=== PATIENT | male | born 1960 | race African-American/Black ===

== ENCOUNTER 2018-04-22 21:54 | Inpatient (IN) | payer OTHER ==
[~2018-04-22] VITALS: Ht 190.5 cm; Wt 109.8 kg
--- NOTE | ~2018-04-22 | 2DMMODE ---
[facility] [address] [place] [address] 2 D/M-MODE ECHOCARDIOGRAM Name: BRODERICK NERI Room #: 355-P ADM IN .R.#: [id number] Admission: 04/23/18 Attend Phys: Toby Viera, Discharge: Date of : 58 Date of Service: 04/25/18 0944 Report #: [id number] THIS REPORT FOR: //name// APPROVED REPORT Study performed: 04/24/2018 14:10:23 EXAM: Comprehensive 2D, Doppler, and color-flow Echocardiogram Patient Location: In-Patient Room #: 355 Status: routine BSA: 2.38 BP: 103/74 mmHg Other Information Study Quality: Good Indications Dyspnea Elevated Troponin 2D Dimensions IVSd: 17.64 (7-11mm) LVOT Diam: 25.20 (18-24mm) LVDd: 49.62 mm PWd: 14.97 (7-11mm) LVDs: 33.19 (25-40mm) Left Atrium: 40.48 (27-40mm) Aortic Root: 34.08 mm IVC: 25.00 mm TAPSE: 2.00 (<1.7) Volumes Left Atrial Volume (Systole) Single Plane 4CH: 68.01 mL Aortic Valve AoV Peak Royce.: 1.39 m/s AO Peak Gr.: 7.69 mmHg LVOT Max P.04 mmHg AO Mean Gr.: 4.92 mmHg LVOT Mean P.65 mmHg AO V2 Mean: 1.06 m/s LVOT Max V: 1.23 m/s AO V2 VTI: 27.94 cm LVOT Mean V: 0.89 m/s RODGER (VTI): 3.86 cm2 LVOT V1 VTI: 21.63 cm RODGER Vmax: 4.42 cm2 SV (LVOT): 107.84 mL [facility] [place] [address] 2 D/M-MODE ECHOCARDIOGRAM Name: BRODERICK NERI Room #: 355-P [facility] IN .R.#: [id number] Admission: 04/23/18 Attend Phys: Toby Viera, Discharge: Date of : 58 Date of Service: 04/25/18 0944 Report #: [id number] Mitral Valve E/A Ratio: 0.9 MV Decel. Time: 214.99 ms MV E Max Royce.: 0.47 m/s MV A Royce.: 0.54 m/s MV PHT: 62.35 ms Pulmonary Valve PV Peak Royce.: 0.98 m/s PV Peak Gr.: 3.86 mmHg Pulmonary Vein P Vein S: 0.34 m/s P Vein A: 0.26 m/s P Vein D: 0.58 m/s P Vein A Dur.: 110.7 msec P Vein S/D Ratio: 0.59 Tricuspid Valve TR Peak Royce.: 2.77 m/s RAP Estimate: 5.00 mmHg TR Peak Gr.: 30.68 mmHg RVSP: 36.00 mmHg Left Ventricle The left ventricle is normal size. There is normal LV segmental wall motion. Mild to moderate concentric left ventricular hypertrophy. The left ventricular systolic function is normal. The left ventricular ejection fraction is within the normal range. LVEF is 55-60%. Left ventricular filling pattern is normal for age. Right Ventricle The right ventricle is normal size. The right ventricular systolic function is normal. Atria The left atrium size is normal. The right atrium size is normal. Aortic Valve The aortic valve is normal in structure. No aortic regurgitation is present. Calculated aortic valve area is 3.9 cm2 with maximum pressure gradient of 8 mmHg and mean pressure gradient of 5 mmHg. Mitral Valve The mitral valve is normal in structure. Trace mitral regurgitation. No evidence of mitral valve stenosis. Tricuspid Valve The tricuspid valve is normal in structure[place] [address] 2 D/M-MODE ECHOCARDIOGRAM Name: BRODERICK NERI Room #: 355-P ADM IN M.R.#: [id number] Admission: 04/23/18 Attend Phys: Toby Viera, Discharge: Date of : 58 Date of Service: 04/25/18 0944 Report #: [id number] regurgitation with an estimate PAP of 36 mmHg. Pulmonic Valve The pulmonary valve is normal in structure. Mild pulmonic regurgitation. Great Vessels The aortic root is normal in size. The IVC is dilated. Pericardium There is no pericardial effusion. <Conclusion> The left ventricle is normal size. LVEF is 55-60%. The aortic valve is normal in structure. The mitral valve is normal in structure. Trace mitral regurgitation. The tricuspid valve is normal in structure. Trace tricuspid regurgitation with an estimate PAP of 36 mmHg. There is no pericardial effusion. <ELECTRONICALLY SIGNED> By: Bryce Jansen MD 04/25/18943 3 3 Bryce Jansen MD /INF
--- NOTE | ~2018-04-22 | HC ---
[facility] [place] [address] CONSULTATION Name: BRODERICK NERI Room #: 355-P ADM IN M.R.#: [id number] Admission: 04/23/18 Attend Phys: Toby Viera MD Discharge: Date of : 58 Report #: [id number] THIS REPORT FOR: //name// CC: Toby Viera NO PCP HISTORY OF PRESENT ILLNESS: The patient is a 57-year-old man who was admitted to the hospital on 04/22/2018 through the emergency department. The patient presented with symptoms of altered mental status. He tended to repeat the same phrase over and over. There were complaints of being off balance, slurred speech, and sweating. He complained of a nosebleed several times during the week and had complaints of hiccups for the last 3 days. The patient had been actively drinking and his alcohol blood level on admission was 58. The patient also was noted to have an elevated AST of 224 and an elevated ALT of 79. In addition, the lipase was 697. The patient reports drinking Cognac. His history is positive for hypertension. He had been seen by his primary care physician and been given a medication for high blood pressure. It was thought that his nosebleeds were from the hypertension. He also has a history of gout. The patient denies recreational drug use. He does report a diarrhea of 2-3 times per day for about a week. He has not observed any blood in the stool. ALLERGIES: He reports no known drug allergies. SOCIAL HISTORY: He is not a smoker. REVIEW OF SYSTEMS: Negative except for the above. PHYSICAL EXAMINATION: VITAL SIGNS: At this hour, blood pressure 110/69, temperature 36.6, pulse rate 89. NECK: Supple. EXTREMITIES: There is no peripheral edema. NEUROLOGIC: He is alert and oriented with normal memory and speech. On cranial nerve testing pupils are equally round and reactive. Extraocular movements are full without nystagmus. Visual velasquez were full to bedside confrontation. Facial sensation and mobility normal. Tongue was normal. Motor testing revealed full power in his arms and legs. There was no tremor or asterixis. Sensation testing was intact to light touch. Coordination testing was done well with [id number]. Reflexes were diminished, but equal from side to side. The toes were downgoing. Gait was not tested. IMAGING DATA: Showed a normal MRI scan of the brain. [address] [address] CONSULTATION Name: BRODERICK NERI Room #: 355-P [facility] IN .R.#: [id number] Admission: 04/23/18 Attend Phys: Toby Viera MD Discharge: Date of : 58 Report #: [id number] IMPRESSION: Acute alcohol intoxication. The patient has been started on alcohol withdrawal protocol. He also has evidence of alcoholic hepatitis and pancreatitis, which is being worked up. The patient voices a desire to stop drinking. <ELECTRONICALLY SIGNED> By: Karan Callaway MD 04/26/18 0920 [id number] Karan Callaway MD /nt
--- NOTE | ~2018-04-22 | PATH ---
[facility] [address] [place] [address] PATHOLOGY RPT PROCEDURE Name: EDWARD NERI Room #: 355-P DIS IN M.R.#: [id number] Admission: 04/23/18 Date of : 58 Discharge: 04/27/18 Report #: [id number] Path Case #: [id number] [facility] Accession Number: [id number] . 01 Material submitted: . PART A: BX OF ANTRUM PART B: BX OF DISTAL ESOPHAGUS . 01 Clinical history: . Thickening of distal esophagus A: Rule out H. pylori B: Rule out esophagitis . 02 Diagnosis: A. Gastric biopsy "biopsy of antrum": - Mild chronic reactive gastropathy. - The immunoperoxidase stain for Helicobacter pylori is negative. . B. 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 - There is no evidence of dysplasia or malignancy. (SHA:pit 04/27/2018) QTP/04/27/2018 . 02 Electronically signed: . Sidney Jefferson MD, Pathologist NPI- [id number] . 01 Gross description: . A. The specimen is received in formalin, labeled "Edward Neri, antrum BX" and consists of a fragment of soft pink-cruz tissue measuring 0.3 x 0.3 x 0.2 cm which is entirely submitted in A1. . B. The specimen is received in formalin, labeled "Edward Neri, BX of distal esophagus" and consists of 2 fragments of soft pink-cruz tissue measuring 0.3 x 0.2 x 0.1 cm each. They are entirely submitted in B1. (SDY; 04/26/2018) SYU/SYU . 02 Pathologist provided ICD-10: K31.9, K22.70, K21.0 . 02 CPT . 590360, 842802, X09100 Specimen Comment: A courtesy copy of this report has been sent to Specimen Comment: [phone], [place] [address] PATHOLOGY RPT PROCEDURE Name: EDWARD NERI BOBY Room #: 355-P DIS IN M.R.#: [id number] Admission: 04/23/18 Date of : 58 Discharge: 04/27/18 Report #: [id number] Path Case #: [id number] Specimen Comment: Report sent to / DR BYRNES Specimen Comment: A duplicate report has been generated due to demographic updates. Performed at: [address], [place], [place] [id number] MD Michael Mckeon MD Phone: [phone] Performed at: [address] [id number] MD Amy Boyd MD Phone: [phone]
--- NOTE | ~2018-04-22 | EKG ---
[address] [place] [address] ELECTROCARDIOGRAM REPORT Name: BRODERICK NERI [place] Room #: 355-P ADM IN M.R.#: [id number] Admission: 04/23/18 Attend Phys: Toby Viera MD Discharge: Date of : 58 Report #: [id number] THIS REPORT FOR: //name// [facility] ED Test Date: 2018-04-22 Test Time: 22:30:47 Pat Name: BRODERICK NERI Department: Room: [facility] Gender: M Network Support Analyst: ANDREAS : 1960 Requested By: Shara Pandey Order Number: [id number] MD: Agus Hope Measurements Intervals [place] Rate: 87 P: 58 [place]: 172 QRS: 62 QRSD: 81 T: 42 QT: 374 QTc: 450 Interpretive Statements Sinus rhythm Premature ventricular premature complexes RSR' in V1 or V2, probably normal variant Compared to ECG 04/12/2015 03:51:59 Ventricular premature complex(es) now present Electronically Signed On 04-23-2018 8:34:33 CDT by Agus Hope [email or web address] <ELECTRONICALLY SIGNED> By: Agus Hope MD, FAC 04/23/18 0834 29 29 Agus Hope MD, [facility] /EPI
[~2018-04-22 21:54] MED LIST: ALBUTEROL2.5 MG/0.5 INH; ALEVE220 MG PO; BISACODYL SUPP10 MG RECTAL; CARAFATE 1 GM TA1 G1 PO; DERMOPLAST SPRA56 ML TOP; DUONEB 2.5-0.5 M3 ML INH; EXFORGE HCT 101 EAC2 PO; LIORESAL 10 MG10 MG PO; MIRALAX17 GM PO; PEPCID20 MG PO; PERCOCET 5-3251 EACH PO; PREDNISONE 20 M20 M1 PO; PROTONIX40 M1 PO; ROXICODONE5 M2 PO; TUMS PO
[2018-04-22 22:26] VITALS: BP 133/81
[2018-04-22 23:03] LABS: HEMATOCRIT 45.3 % (42.0-52.0); HEMOGLOBIN 15.4 gm/dL (14.0-18.0); MCH 32.2 pg (26.0-34.0); MCV 94.6 fL (80.0-100.0); PLATELET COUNT 195 thou/uL (150-400); RBC 4.79 mil/uL (4.50-6.00); RDW 14.7 % (10.5-14.5); WBC 12.1 thou/uL (4.0-11.0)
[2018-04-22 23:18] LABS: APTT 40.9 Seconds (24.5-32.8); PROTIME 10.3 Seconds (9.3-11.4)
[2018-04-22 23:23] LABS: CALCIUM 9.2 mg/dL (8.5-10.1); CREATININE 1.5 mg/dL (0.7-1.3); POTASSIUM 3.3 mmol/L (3.5-5.1)
[2018-04-22 23:27] LABS: ABSOLUTE NEUTROPHILS 10.2 thou/uL (1.4-8.2); ALBUMIN 2.9 g/dL (3.4-5.0); ATYPICAL LYMPHS 3 %; TOTAL BILIRUBIN 0.4 mg/dL (<0.1-1.0); TOTAL PROTEIN 8.4 g/dL (6.4-8.2)
[2018-04-23 00:28] LABS: BE(vivo) -6.8 mmol/L (-2 to +3); PCO2 VENOUS 34.6 mmHg (41.0-51.0); PO2 VENOUS 25.9 mmHg (35.0-45.0)
[2018-04-23 01:33] LABS: BE(vivo) -8.8 mmol/L (-2 to +3); HCO3 13.8 mmol/L (22.0-26.0); PO2 73.3 mmHg (80.0-100.0); pH 7.394 (7.360-7.450)
[2018-04-23 01:39] LABS: PCO2 23.1 mmHg (35.0-45.0)
[2018-04-23 02:43] VITALS: BP 109/67
[2018-04-23 02:55] VITALS: BP 109/67
[2018-04-23 03:10] VITALS: BP 123/77
[2018-04-23] MEDS ORDERED: FLOMAX0.4 MG PO (03:36)
[2018-04-23] MEDS ORDERED: ALLOPURINOL 10100 M1 PO (03:37)
[2018-04-23] MEDS ORDERED: AMLODIPINE BESY10 MG PO (03:38)
[2018-04-23] MEDS ORDERED: DIOVAN320 MG PO (03:38)
[2018-04-23] MEDS ORDERED: HYDROCHLOROTHIA25 M2 PO (03:39)
[2018-04-23 07:13] LABS: CHOLESTEROL 155 mg/dL (<200); HDL CHOLESTEROL 17 mg/dL (>40); LDL CHOLESTEROL 99 mg/dL (<100); MAGNESIUM 1.9 mg/dL (1.8-2.4); SODIUM 129 mmol/L (136-145); TC:HDL 9.1 Ratio (Not establshd); TRIGLYCERIDE 196 mg/dL (<150); VLDL 39 mg/dL (<40)
[2018-04-23 07:32] LABS: FOLIC ACID 19.6 ng/mL (8.6-58.9); TSH 0.684 uIU/mL (0.358-3.740)
[2018-04-23 08:16] VITALS: BP 110/69
[2018-04-23 15:07] LABS: HAV IgM AB (ANTI-HAV IgM) Negative (Negative); HEPATITIS B SURFACE AG Negative (Negative); HEPATITIS C VIRUS AB 0.1 (0.0-0.9)
[2018-04-23 15:40] VITALS: BP 112/74
[2018-04-23 15:48] LABS: POTASSIUM 3.8 mmol/L (3.5-5.1)
[2018-04-23 19:49] VITALS: BP 113/72
[2018-04-24 00:48] VITALS: BP 124/74
[2018-04-24 03:02] VITALS: BP 99/65
[2018-04-24 06:36] LABS: HEMATOCRIT 44.8 % (42.0-52.0); HEMOGLOBIN 14.8 gm/dL (14.0-18.0); MCH 31.8 pg (26.0-34.0); MCHC 33.1 g/dL (28.0-37.0); MCV 96.2 fL (80.0-100.0); PLATELET COUNT 175 thou/uL (150-400); RBC 4.65 mil/uL (4.50-6.00); RDW 15.1 % (10.5-14.5); WBC 7.7 thou/uL (4.0-11.0)
[2018-04-24 06:58] LABS: ALBUMIN 2.4 g/dL (3.4-5.0); ANION GAP 14 mmol/L (7-16); BUN 21 mg/dL (7-18); CALCIUM 8.7 mg/dL (8.5-10.1); CHLORIDE 99 mmol/L (98-107); CO2 17 mmol/L (21-32); CREATININE 1.2 mg/dL (0.7-1.3); GLUCOSE 84 mg/dL (74-106); POTASSIUM 3.5 mmol/L (3.5-5.1); SGOT 209 U/L (15-37); SGPT 84 U/L (30-65); SODIUM 130 mmol/L (136-145); TOTAL BILIRUBIN 0.3 mg/dL (<0.1-1.0); TOTAL PROTEIN 7.3 g/dL (6.4-8.2); TROPONIN-I <0.06 ng/mL (<0.06)
[2018-04-24 07:11] LABS: LIPASE 2599 U/L (73-393)
[2018-04-24 07:44] VITALS: BP 103/70
[2018-04-24 09:33] LABS: ABSOLUTE NEUTROPHILS 5.2 thou/uL (1.4-8.2)
[2018-04-24 09:38] LABS: ANISOCYTOSIS SLIGHT
[2018-04-24 11:19] VITALS: BP 108/74
[2018-04-24 15:12] VITALS: BP 122/57
[2018-04-24 18:30] LABS: URINE BILIRUBIN NEGATIVE (Negative); URINE BLOOD 2+ (Negative); URINE CLARITY CLEAR; URINE COLOR YELLOW; URINE GLUCOSE-RANDOM* NEGATIVE (Negative); URINE KETONES NEGATIVE (Negative); URINE LEUKOCYTES NEGATIVE (Negative); URINE NITRITE NEGATIVE (Negative); URINE PROTEIN (DIPSTICK) 1+ (Negative); URINE SPECIFIC GRAVITY 1.025 (1.005-1.035); URINE UROBILINOGEN 0.2 E.U./dl (0.2-1.0)
[2018-04-24 18:40] LABS: AMP/METHAMP Negative (Negative); BARBITURATES Negative (Negative); BENZODIAZEPINES Negative (Negative); COCAINE Negative (Negative); METHADONE Negative (Negative); OPIATES Negative (Negative); PCP Negative (Negative)
[2018-04-24 18:46] LABS: HYALINE CASTS 0-3 Few /LPF (None Seen); SQUAMOUS 4-10 Moderate /LPF (0-3)
[2018-04-24 18:47] LABS: BACTERIA None Seen /HPF (None Seen); CRYSTALS None Seen /LPF (None Seen); URINE RBC 3-10 Few /HPF (0-2); URINE WBC 0-5 Rare /HPF (0-5)
[2018-04-24 19:57] VITALS: BP 109/76
[2018-04-25 05:00] VITALS: BP 101/63
[2018-04-25 06:18] LABS: HEMATOCRIT 42.5 % (42.0-52.0); HEMOGLOBIN 14.1 gm/dL (14.0-18.0); MCH 31.9 pg (26.0-34.0); MCHC 33.1 g/dL (28.0-37.0); MCV 96.2 fL (80.0-100.0); PLATELET COUNT 225 thou/uL (150-400); RBC 4.42 mil/uL (4.50-6.00); RDW 14.9 % (10.5-14.5); WBC 6.8 thou/uL (4.0-11.0)
[2018-04-25 06:41] LABS: CALCIUM 8.7 mg/dL (8.5-10.1); POTASSIUM 3.9 mmol/L (3.5-5.1)
[2018-04-25 06:45] LABS: ALBUMIN 2.3 g/dL (3.4-5.0); DIRECT BILIRUBIN 0.1 mg/dL (<0.1-0.3); TOTAL BILIRUBIN 0.3 mg/dL (<0.1-1.0)
[2018-04-25 08:43] VITALS: BP 113/74
[2018-04-25 09:51] LABS: ABSOLUTE NEUTROPHILS 4.4 thou/uL (1.4-8.2); ANISOCYTOSIS 1+
[2018-04-25 11:28] VITALS: BP 116/85
[2018-04-25 15:44] VITALS: BP 113/73
[2018-04-25 19:41] VITALS: BP 110/78
[2018-04-26 03:28] VITALS: BP 123/79
[2018-04-26 04:11] LABS: HEMATOCRIT 45.3 % (42.0-52.0); HEMOGLOBIN 14.9 gm/dL (14.0-18.0); MCH 31.3 pg (26.0-34.0); MCHC 32.8 g/dL (28.0-37.0); MCV 95.5 fL (80.0-100.0); PLATELET COUNT 340 thou/uL (150-400); RBC 4.74 mil/uL (4.50-6.00); RDW 15.1 % (10.5-14.5); WBC 8.4 thou/uL (4.0-11.0)
[2018-04-26 04:16] LABS: INR 1.1
[2018-04-26 04:25] LABS: ALBUMIN 2.4 g/dL (3.4-5.0); CALCIUM 8.9 mg/dL (8.5-10.1); CREATININE 0.8 mg/dL (0.7-1.3); POTASSIUM 3.5 mmol/L (3.5-5.1); TOTAL BILIRUBIN 0.3 mg/dL (<0.1-1.0); TOTAL PROTEIN 7.4 g/dL (6.4-8.2)
[2018-04-26 05:19] LABS: ABSOLUTE NEUTROPHILS 5.1 thou/uL (1.4-8.2); ATYPICAL LYMPHS 1 %; LARGE PLATELETS FEW; PLATELET ESTIMATE NORMAL
[2018-04-26 05:20] LABS: TOXIC GRANULATION 1+
[2018-04-26 07:44] VITALS: BP 117/80
[2018-04-26 12:53] VITALS: BP 113/79
[2018-04-26 15:14] VITALS: BP 112/79
[2018-04-26] MEDS ORDERED: AUGMENTIN 875-1 EACH PO (15:35)
[2018-04-26] MEDS ORDERED: AMLODIPINE BESY10 MG PO (15:35)
[2018-04-26] MEDS ORDERED: LOPERAMIDE 2 MG2 M1 PO (15:35)
[2018-04-26] MEDS ORDERED: VITAMIN B-1100 M2 PO (15:35)
[2018-04-26] MEDS ORDERED: PRENATAL COMPL1 EACH PO (15:35)
[2018-04-26] MEDS ORDERED: PANCREAZE DR 11 EAC2 PO (15:35)
[2018-04-26] MEDS ORDERED: HYDROCHLOROTHIA25 M2 PO (15:35)
[2018-04-26] MEDS ORDERED: ALLOPURINOL 10100 M1 PO (15:35)
[2018-04-26] MEDS ORDERED: PROTONIX 20 MG20 M1 PO (15:35)
[2018-04-26] MEDS ORDERED: DIOVAN320 MG PO (15:35)
[2018-04-26 19:34] VITALS: BP 103/59
[2018-04-27 03:21] VITALS: BP 121/83
[2018-04-27 03:37] LABS: HEMATOCRIT 43.5 % (42.0-52.0); HEMOGLOBIN 14.6 gm/dL (14.0-18.0); MCH 31.8 pg (26.0-34.0); MCHC 33.6 g/dL (28.0-37.0); MCV 94.4 fL (80.0-100.0); RBC 4.61 mil/uL (4.50-6.00); RDW 14.7 % (10.5-14.5); WBC 8.7 thou/uL (4.0-11.0)
[2018-04-27 03:45] LABS: PLATELET COUNT 421 thou/uL (150-400)
[2018-04-27 03:54] LABS: ALBUMIN 2.6 g/dL (3.4-5.0); CALCIUM 8.8 mg/dL (8.5-10.1); CREATININE 0.9 mg/dL (0.7-1.3); TOTAL BILIRUBIN 0.3 mg/dL (<0.1-1.0); TOTAL PROTEIN 6.7 g/dL (6.4-8.2)
[2018-04-27 03:55] LABS: POTASSIUM 4.6 mmol/L (3.5-5.1)
[2018-04-27 05:48] LABS: ATYPICAL LYMPHS 6 %; PLATELET ESTIMATE NORMAL
[2018-04-27 05:49] LABS: LARGE PLATELETS SEVERAL
[2018-04-27 07:45] VITALS: BP 118/91
[2018-04-27 10:14] VITALS: BP 118/91
== END 2018-04-27 11:50 | disposition home or self-care (01) | DRG 177 ==
LOC: ER 21:54 → EROBS 04-23 02:14 → 3W 04-23 02:14
PROVIDERS: Hospitalist; Internal Medicine Gastroenterology; Nurse Practitioner Acute Care; Student in an Organized Health Care Education/Training Program
PROC: 0DB68ZX Excision of Stomach, Via Natural or Artificial Opening Endoscopic, Diagnostic (ICD-10-PCS; principal; 2018-04-26)
PROC: 0DB58ZX Excision of Esophagus, Via Natural or Artificial Opening Endoscopic, Diagnostic (ICD-10-PCS; principal; 2018-04-26)
DX: J69.0 Pneumonitis due to inhalation of food and vomit (principal); K85.90 Acute pancreatitis without necrosis or infection, unspecified; K22.10 Ulcer of esophagus without bleeding; E87.1 Hypo-osmolality and hyponatremia; N17.9 Acute kidney failure, unspecified; I10 Essential (primary) hypertension; M10.9 Gout, unspecified; R27.0 Ataxia, unspecified; R74.0 Nonspecific elevation of levels of transaminase and lactic acid dehydrogenase [LDH]; K70.10 Alcoholic hepatitis without ascites; K44.9 Diaphragmatic hernia without obstruction or gangrene; I16.0 Hypertensive urgency; K26.9 Duodenal ulcer, unspecified as acute or chronic, without hemorrhage or perforation; K25.9 Gastric ulcer, unspecified as acute or chronic, without hemorrhage or perforation; R19.7 Diarrhea, unspecified; E87.6 Hypokalemia; K76.0 Fatty (change of) liver, not elsewhere classified; F10.220 Alcohol dependence with intoxication, uncomplicated; R06.6 Hiccough; Z79.899 Other long term (current) drug therapy; Z91.14 Patient's other noncompliance with medication regimen
CPT/HCPCS: 10879; 62110; 62900; 70005

== ENCOUNTER 2020-10-19 12:27 | Inpatient (IN) | payer BC ==
[~2020-10-19] VITALS: Ht 190.5 cm; Wt 117.5 kg
[2020-10-19] VITALS (19 sets, daily range): BP systolic 60–139; BP diastolic 32–71
[~2020-10-19 12:27] MED LIST changes: +ALLOPURINOL 10100 M1 PO; +AMLODIPINE BESY10 MG PO; +AUGMENTIN 875-1 EACH PO; +DIOVAN320 MG PO; +FLOMAX0.4 MG PO; +HYDROCHLOROTHIA25 M2 PO; +LOPERAMIDE 2 MG2 M1 PO; +PANCREAZE DR 11 EAC2 PO; +PRENATAL COMPL1 EACH PO; +PROTONIX 20 MG20 M1 PO; +VITAMIN B-1100 M2 PO
[2020-10-19 13:09] LABS: BASOPHILS 0.3 % (0.0-2.0); EOSINOPHILS 0.4 % (0.0-3.0); HEMATOCRIT 48.9 % (42.0-52.0); HEMOGLOBIN 15.5 gm/dL (14.0-18.0); LYMPHOCYTES 21.7 % (24.0-44.0); MCHC 31.8 g/dL (28.0-37.0); MCV 100.6 fL (80.0-100.0); MONOCYTES 10.1 % (1.0-8.0); PLATELET COUNT 234 thou/uL (150-400); POLYS 67.5 % (36.0-66.0); RBC 4.86 mil/uL (4.50-6.00); RDW 14.7 % (10.5-14.5)
[2020-10-19 13:25] LABS: URINE BILIRUBIN NEGATIVE (Negative); URINE BLOOD NEGATIVE (Negative); URINE CLARITY CLEAR; URINE COLOR YELLOW; URINE GLUCOSE-RANDOM* 3+ (Negative); URINE KETONES NEGATIVE (Negative); URINE LEUKOCYTES-REFLEX NEGATIVE (Negative); URINE NITRITE-REFLEX NEGATIVE (Negative); URINE PROTEIN (DIPSTICK) NEGATIVE (Negative); URINE SPECIFIC GRAVITY <= 1.005 (1.005-1.035); URINE UROBILINOGEN 0.2 E.U./dl (0.2-1.0)
[2020-10-19 13:35] LABS: CALCIUM 9.5 mg/dL (8.5-10.1); CREATININE 2.8 mg/dL (0.7-1.3); POTASSIUM 5.2 mmol/L (3.5-5.1); TOTAL BILIRUBIN 0.7 mg/dL (0.2-1.0); TOTAL PROTEIN 8.3 g/dL (6.4-8.2)
[2020-10-19 13:55] LABS: BE(vivo) -1.4 mmol/L (-2 to +3); HCO3 24.3 mmol/L (22.0-26.0); PCO2 VENOUS 44.5 mmHg (41.0-51.0); PO2 VENOUS 49.8 mmHg (35.0-45.0)
[2020-10-19] MEDS ORDERED: METFORMIN HCL500 M1 PO (15:20)
[2020-10-19] MEDS ORDERED: TAMSULOSIN HCL0.4 MG PO (15:20)
[2020-10-19] MEDS ORDERED: HYDROCHLOROTHIA25 M1 PO (15:21)
[2020-10-19] MEDS ORDERED: CIPROFLOXACIN500 M1 PO (15:21)
[2020-10-19] MEDS ORDERED: AMLODIPINE-VAL1 EAC3 PO (15:21)
[2020-10-19 16:22] LABS: MAGNESIUM 2.6 mg/dL (1.8-2.4); PHOSPHORUS 3.3 mg/dL (2.6-4.7)
--- NOTE | 2020-10-19 16:58 | EKG ---
[address] [place] [address] ELECTROCARDIOGRAM REPORT Name: BRODERICK NERI [place] Room #: 170-5 ADM IN M.R.#: [id number] Admission: 10/19/20 Attend Phys: Breezy Spain MD Discharge: Date of : 58 Report #: [id number] [facility] ED Test Date: 2020-10-19 Test Time: 13:34:52 Pat Name: BRODERICK NERI Department: Room: 170 5 Gender: M Explosive Operator: ELIEZER : 1960 Requested By: Anita Barber Order Number: [id number] MD: Agus Hope Measurements Intervals [place] Rate: 99 P: 52 OR: 195 QRS: 43 QRSD: 105 T: 23 QT: 347 QTc: 446 Interpretive Statements Sinus rhythm Borderline ST elevation, anterior leads Compared to ECG 04/22/2018 22:30:47 ST (T wave) deviation now present Ventricular premature complex(es) no longer present Electronically Signed On 10-19-2020 16:58:44 CDT by Agus Hope [email or web address] <ELECTRONICALLY SIGNED> By: Agus Hope MD, [facility] 10/19/20 1658 1334 1334 Agus Hope MD, [facility] /EPI
[2020-10-19] MEDS ORDERED: VITAMIN D21250 MC1 PO (17:19)
--- NOTE | 2020-10-19 17:48 | NUR ---
ATTEMPTED TO CALL REPORT AT 3424.
--- NOTE | 2020-10-19 18:49 | NUR ---
PATIENT ADMITTED INTO ICU ROOM 244 FROM ED AT 1825. PLACED ON FENCE MACHINE OPERATOR AND PULSE OX. VOIDING. AT BEDSIDE AND GIVEN CODE.
[2020-10-19 23:12] LABS: CALCIUM 9.6 mg/dL (8.5-10.1); CREATININE 3.2 mg/dL (0.7-1.3)
[2020-10-19 23:13] LABS: POTASSIUM 3.7 mmol/L (3.5-5.1)
[2020-10-20] VITALS (69 sets, daily range): BP systolic 77–116; BP diastolic 41–81
[2020-10-20 04:31] LABS: CALCIUM 9.7 mg/dL (8.5-10.1); POTASSIUM 3.1 mmol/L (3.5-5.1)
[2020-10-20 05:53] LABS: URINE CREATININE-RANDOM* 202.8 mg/dL
--- NOTE | 2020-10-20 06:45 | NUR ---
PT A/OX4.ADMITTED WITH HHS AND ERON.PT PRESENTED WITH VERY HIGH BLOOD GLUCOSE,HE IS GETTING INSULIN DRIP PER ORDERS.INFUSING AT 12UNITS/HR AT THIS TIME.ELECTROLYTES BEING REPLACED PER ORDERS.PT WITH HYPOTENSION THAT FAILED TO RESPOND TO BOLUSES AFTER 1 LITERS OF LR BOLUS,NS 500ML BOLUS PLUS 2 LITERS BOLUS FROM ED.PT WAS STARTED ON LEVOPHED,INFUSING AT 5MCG/MIN AT THIS TIME,BP IMPROVING SUSTAINING MAP>65.BLOOD GLUCOSE CHECK Q1H.BATES CATHETER WAS PLACED FOR ACCURATE I&O.PT HAD ONLY 450CC UO,MANUFACTURING ENGINEER AUTOMOTIVE WAS MADE AWARE,INCREASED D5 TO 125CC/HR.PT DENIES PAIN,CHEST PAIN,NAUSEA OR ANY DISTRESS AT THIS TIME
[2020-10-20 14:24] LABS: CALCIUM 8.9 mg/dL (8.5-10.1); CREATININE 2.2 mg/dL (0.7-1.3); POTASSIUM 3.8 mmol/L (3.5-5.1)
--- NOTE | 2020-10-20 19:22 | NUR ---
PT BLOOD GLUCOSE IN MID 200'S DESPITE OF INSULIN RATE INCREASE. PT WAS GIVEN 500ML NS BOLUS AND NO SUCCESS TITRATING DOWN THE LEVOPHED. ALL THIS INFORMATION WERE GIVEN TO AT 1800. NO NEW ORDER RECEIVED. DR. RODNEY TOLD THIS RN TO KEEP THE BLOOD GLUCOSE AT 150-250 AND KEEP ON SAME IV FLUIDS.
[2020-10-21] VITALS (45 sets, daily range): BP systolic 92–155; BP diastolic 58–95
[2020-10-21 05:24] LABS: CALCIUM 8.8 mg/dL (8.5-10.1); CREATININE 1.5 mg/dL (0.7-1.3); MAGNESIUM 2.2 mg/dL (1.8-2.4); POTASSIUM 3.9 mmol/L (3.5-5.1)
--- NOTE | 2020-10-21 05:31 | NUR ---
PT REMAINS ON INSULIN DRIP.BLOOD GLUCOSE RANGING 150S-250S.TITRATING INSULIN PER PROTOCOL.ELECTROLYTES AND RENAL FUNCTION-CREAT STABILIZING-SEE LABS RESULTS.REMAINS ON IV FLUIDS PER ORDERS-GREAT URINE OUTPUT THIS SHIFT >2000 CLEAR URINE.BLOOD PRESSURE REMANS MARGINAL REQUIRING USE OF LEVOPHED.PT HYPOTENSIVE W/ SBP IN 70-80S WITH MAP <60 ESPECIALLY WHILE SLEEPING.TITRATING LEVOPHED.ASSESSMENT PER DOCUMENTATION.NO OTHER CONCERNS AT THIS TIME.
--- NOTE | 2020-10-21 09:01 | NUR ---
DR. RODNEY AT BEDSIDE, HE IS GOING TO D/C THE FLUIDS WITH 20 OF K. HE WANTS US TO WORK ON GETTING HIM OFF OF THE LEVO, AND HE WILL REVIEW HIS SUGARS AND SEE WHERE WE ARE AT.
[2020-10-22] VITALS (16 sets, daily range): BP systolic 73–166; BP diastolic 43–111
[2020-10-22 03:17] LABS: CALCIUM 8.9 mg/dL (8.5-10.1); CREATININE 1.1 mg/dL (0.7-1.3); POTASSIUM 4.3 mmol/L (3.5-5.1)
--- NOTE | 2020-10-22 08:15 | NUR ---
chart review. cm notified by cm team pt out of net work with insurance and if needs to remain in hospital, need to see if can transfer to [facility], [facility], [facility], [facility] and [facility] are in network with his [employer] insurance. cm sent message to hospitalist to see if need to transfer.
[2020-10-22] MEDS ORDERED: TRADJENTA5 MG PO (18:00)
[2020-10-22] MEDS ORDERED: LANTUS SUBQ (18:00)
[2020-10-22] MEDS ORDERED: METOPROLOL SUCC25 M1 PO (18:00)
[2020-10-22] MEDS ORDERED: ACETAMINOPHEN325 M1 PO (18:00)
[2020-10-22] MEDS ORDERED: FREESTYLE LANC1 EACH SUBQ (18:14)
[2020-10-22] MEDS ORDERED: FREESTYLE SYST1 EACH SUBQ (18:14)
[2020-10-22] MEDS ORDERED: FREESTYLE TEST1 EACH SUBQ (18:14)
--- NOTE | 2020-10-22 20:12 | NUR ---
PT ALERT AND ORIENTED X4. UP TO CHAIR AND AMBULATING IN ROOM WITH STEADY GAIT. SUPERVISOR DRYING AND SOFTENING HERE TO SEE PT AND CASE MANAGEMENT ASSISTING WITH DISCHARGE PLANNING. PLAN FOR PT TO DISCHARGE HOME AFTER DINNER TONIGHT. PT INSTRUCTED AND RETURN DEMO USING GLUCOMETER FOR BLOOD GLUCOSE CHECK, DRAWING UP INSULIN, AND SELF INJECTING/ADMINSTERING INSULIN. PT VERBALIZED UNDERSTANDING AND ABLE TO PERFORM LUNCH AND DINNER DOSES. PT'S AT BEDSIDE THROUGHOUT THE DAY TODAY. DISCHARGE ORDERS RECIEVED THIS EVENING AND DISCUSSED WITH PT AND HIS . PAPER SCRIPTS GIVEN TO PAIN AND DISCUSSED NEW MEDICATIONS WITH PRINTED CARE NOTES FOR PATIENT. HE VERBALIZED UNDERSTANDING. BP LOW AT 1600. SPOKE WITH DR RODNEY AND HE REQUESTED TO AMBULATE PT AND RECHECK. STANDING/POST AMBULATION BLOOD PRESSURE IMPROVED TO 108/63 AND SBP REMAINS IN 90-100'S. DR RODNEY INFORMED/UPDATED. PT DISCHARGED BY PRIVATE CAR WITH HIS .
[2020-10-23 04:06] LABS: GLYCOHEMOGLOBIN (HGB A1C) 13.9 % (4.8-5.6)
== END 2020-10-22 20:00 | disposition home or self-care (01) | DRG 637 ==
LOC: ER 12:27 → ICU 15:10 → EROBS 15:10 → ICU 18:08
PROVIDERS: Internal Medicine; Nurse Practitioner; Nurse Practitioner Family; Physician Assistant; ADMIT Hospitalist; ATTEND Hospitalist
DX: E11.00 Type 2 diabetes mellitus with hyperosmolarity without nonketotic hyperglycemic-hyperosmolar coma (NKHHC) (principal); N17.0 Acute kidney failure with tubular necrosis; G93.41 Metabolic encephalopathy; E87.1 Hypo-osmolality and hyponatremia; M10.9 Gout, unspecified; E86.0 Dehydration; E11.65 Type 2 diabetes mellitus with hyperglycemia; E78.5 Hyperlipidemia, unspecified; N40.0 Benign prostatic hyperplasia without lower urinary tract symptoms; N18.9 Chronic kidney disease, unspecified; E11.22 Type 2 diabetes mellitus with diabetic chronic kidney disease; E66.01 Morbid (severe) obesity due to excess calories; I95.9 Hypotension, unspecified; I12.9 Hypertensive chronic kidney disease with stage 1 through stage 4 chronic kidney disease, or unspecified chronic kidney disease; Z79.899 Other long term (current) drug therapy; Z79.84 Long term (current) use of oral hypoglycemic drugs; Z68.32 Body mass index [BMI] 32.0-32.9, adult; Z91.19 Patient's noncompliance with other medical treatment and regimen
CPT/HCPCS: 10078; 10203; 50455